=== PATIENT | male | born 1950 | race Caucasian/White ===

== ENCOUNTER 2023-04-03 06:15 | Outpatient (CLI) | payer MEDICARE, SELFPAY | END 2023-04-03 06:16 | disposition home or self-care (01) | LOC: AMB 04-07 09:26 | PROVIDERS: PCP Family Medicine; Visit Provider Emergency Medicine | DX: M79.652 Pain in left thigh (principal) | CPT/HCPCS: A0425; A0429 ==

== ENCOUNTER 2023-04-03 06:41 | Observation (INO) | payer MEDICARE, SELFPAY ==
[2023-04-03 06:48] VITALS: BP 142/84; PULSE 84; RESP 16; TEMP 36.4; O2SAT 98; BMI 36.6
[2023-04-03 07:31] LABS: Basophils Absolute Auto 0.03 K/uL (0.00-0.30); Basophils Percent Auto 0.3 % (0.0-3.0); Eosinophils Absolute Auto 0.12 K/uL (0.00-0.50); Eosinophils Percent Auto 1.2 % (0.0-7.0); Hematocrit 42.5 % (37.0-53.0); Hemoglobin* 14.6 gm/dL (13.5-17.5); Immature Granulocytes Abs Auto 0.01 K/uL (0.00-0.30); Immature Granulocytes Pct Auto 0.1 %; Lymphocytes Percent Auto 17.7 % (20-44); Mean Corpuscular HGB Conc 34 gm/dL (32-36); Mean Corpuscular Hemoglobin 30 pg (26-34); Mean Corpuscular Volume 89 fL (80-100); Monocytes Percent Auto 6.4 % (0.0-11.0); Neutrophils Percent Auto 74.3 % (42.0-72.0); Platelet Count* 277 K/uL (140-440); RDW Coefficient of Variation % 13.1 % (11.5-15.5); Slide Review Reflex No; White Blood Count* 9.83 K/uL (4.50-11.00)
[2023-04-03] MEDS: MORPHINE 4 MG/ML INJ IVP ×6 (07:31→21:49)
[2023-04-03 07:35] VITALS: PULSE 72; RESP 18; O2SAT 95
--- NOTE | 2023-04-03 07:40 | ED_ITS ---
HPI - General Adult General Date Seen: 04/03/23 <Marli Weber MD - Last Filed: 04/10/23 11:09> Chief complaint: Extremity Pain/Injury, Lower <Marli Weber MD - Last Filed: 04/10/23 11:09> Stated complaint: L leg pain <Marli Weber MD - Last Filed: 04/10/23 11:09> Time Seen by Provider: 04/03/23 07:00 <Marli Weber MD - Last Filed: 04/10/23 11:09> Source: patient <Marli Weber MD - Last Filed: 04/10/23 11:09> Mode of arrival: EMS <Marli Weber MD - Last Filed: 04/10/23 11:09> Limitations: no limitations <Marli Weber MD - Last Filed: 04/10/23 11:09> History of Present Illness HPI narrative: Patient is a 73-year-old male here by EMS, accompanied by his who presents for evaluation of left anterolateral thigh pain. He has a history of stroke on the left and residual weakness but typically gets around with a cane. He has had multiple episodes of this kind of pain and it has been previously diagnosed as meralgia paresthetica. He takes gabapentin chronically, he also has diabetic neuropathy. It started to bother him yesterday, any talked with Dr. Castelan over the phone, and was prescribed oxycodone. He has been taking 5 mg, but pain has been poorly controlled and he was not able to ambulate. Therefore he called 911. He does note that he has a couple of chronic wounds 1 on the anterior right lower leg and 1 on the posterior left lower leg, these have been stable, he says he has been meaning to see somebody about those. He has not had fevers, no falls. Leg has not been swollen or red. <Marli Weber MD - Last Filed: 04/10/23 11:09> Related Data Home medications: Home Medications Medication Instructions Recorded Confirmed alendronate 70 mg tablet 70 mg PO Q7D 04/03/23 04/03/23 atorvastatin 40 mg tablet 40 mg PO DAILY 04/03/23 04/03/23 baclofen 10 mg tablet 10 mg PO TID 04/03/23 04/03/23 blood sugar diagnostic (Accu-Chek 04/03/23 04/03/23 Flaquita Plus test strips) empagliflozin 10 mg tablet 10 mg PO DAILY 04/03/23 04/03/23 (Jardiance) epinephrine 0.3 mg/0.3 mL 0.3 mg IM .ud 04/03/23 04/03/23 injection, auto-injector gabapentin 300 mg capsule 600 - 900 mg PO TID 04/03/23 04/03/23 glipizide 10 mg tablet, extended 20 mg PO DAILY 04/03/23 04/03/23 release 24 hr insulin glargine 100 unit/mL (3 65 - 80 unit subcut QPM 04/03/23 04/03/23 mL) subcutaneous pen (Lantus Solostar U-100 Insulin) insulin lispro 100 unit/mL 10 - 20 unit subcut .every evening 04/03/23 04/03/23 subcutaneous pen (Humalog KwikPen as dir (U-100) Insulin) lisinopril 20 mg tablet 20 mg PO DAILY 04/03/23 04/03/23 metformin 1,000 mg tablet 1,000 mg PO BID 04/03/23 04/03/23 nitroglycerin 0.4 mg sublingual 0.4 mg sublingual Q5M 04/03/23 04/03/23 tablet oxybutynin chloride 5 mg tablet 5 mg PO BID 04/03/23 04/03/23 Previous Rx's Medication Instructions Recorded potassium chloride 10 mEq 10 meq PO DAILY #7 caps 04/03/23 capsule,extended release acetaminophen 650 mg 1,300 mg (2 x 650 mg) PO Q8H PRN 04/05/23 tablet,extended release 30 days #120 tabs amlodipine 10 mg tablet 5 mg (1/2 x 10 mg) PO DAILY 30 04/05/23 days #15 tabs carvedilol 25 mg tablet 37.5 mg (1.5 x 25 mg) PO BID 30 04/05/23 days #90 tabs hydrochlorothiazide 25 mg tablet 12.5 mg (1/2 x 25 mg) PO DAILY 30 04/05/23 days #15 tabs morphine 15 mg tablet,extended 15 mg PO BID 15 days #30 tabs 04/05/23 release nystatin 100,000 unit/gram topical 1 applic topical BID 15 days #30 04/05/23 powder grams oxycodone 5 mg tablet 2.5 - 5 mg (0.5 - 1 x 5 mg) PO Q4H 04/05/23 PRN 15 days #20 tabs sennosides 8.6 mg-docusate sodium 2 tab PO BID 30 days #120 tabs 04/05/23 50 mg tablet (Stool Softener-Laxative) <Marli Weber MD - Last Filed: 04/10/23 11:09> Allergies/adverse reactions: Allergies Allergy/AdvReac Type Severity Reaction Status Date / Time No Known Drug Allergies Allergy Verified 04/03/23 07:31 <Marli Weber MD - Last Filed: 04/10/23 11:09> Review of Systems Status of ROS: Reports: 6 or more systems reviewed and unremarkable except as noted in History and below <Marli Weber MD - Last Filed: 04/10/23 11:09> [facility] Medical History: Medical History (Updated 04/05/23 @ 15:15 by Faustino Pool MD) Left hemiparesis ?G81.94 - Hemiplegia, unspecified affecting left nondominant side (ICD-10) Essential hypertension ?I10 - Essential (primary) hypertension (ICD-10) Gout ?M10.9 - Gout, unspecified (ICD-10) Osteoporosis ?M81.0 - Age-related osteoporosis without current pathological fracture (ICD- 10) Insulin dependent diabetes mellitus Hemorrhagic cerebrovascular accident (CVA) ?I61.9 - Nontraumatic intracerebral hemorrhage, unspecified (ICD-10) Hyperlipidemia ?E78.5 - Hyperlipidemia, unspecified (ICD-10) CAD (coronary artery disease) ?I25.10 - Atherosclerotic heart disease of [place] coronary artery without angina pectoris (ICD-10) <Marli Wbeer MD - Last Filed: 04/10/23 11:09> Surgical History: Surgical History (Updated 04/03/23 @ 11:47 by Rosanna Lara MD) S/P ORIF (open reduction internal fixation) fracture ?Z98.890 - Other specified postprocedural states (ICD-10) ?Z87.81 - Personal history of (healed) traumatic fracture (ICD-10) <Marli Weber MD - Last Filed: 04/10/23 11:09> Social History: Social History (Updated 04/03/23 @ 11:44 by Rosanna Lara MD) Narrative: Lives with Sirena (medical decision maker if needed). 2 adult sons. 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 Quit smoking 2000, ETOH 3-4 nights/week. Requests Full Code status. What is your current living situation?: I presently have a place to live Problems where you live: no known problems Problems where you live details: RAILINGS TO LOWER LEVELS NO CURRENT PROBLEMS In the past 12 months, utilities in danger of being shut off: no In the past 12 mos, have been you worried that your food would run out before you had money to buy more?: never true In the past 12 mos, the food you bought just didn't last and you didn't have money to buy more?: never true Highest level of school completed/degree received: Associate degree: academic program Smoking Status: Former smoker Do you use any of these nicotine containing products: None Second hand tobacco smoke exposure: No How often do you have a drink containing alcohol: 2-3 times a week Alcohol type: beer How many standard drinks containing alcohol do you have on a typical day: 1 or 2 How often do you have six or more drinks on one occasion: Never AUDIT-C Alcohol total score: 3 Non-prescribed substance use: denies use Caffeine: Yes (2 CUPS FOLGERS COFFEE) How often does anyone, including family, friends and others, physically hurt you : never How often does anyone, including family, friends and others, insult or talk down to you: never How often does anyone, including family, friends and others, threaten you with harm: never How often does anyone, including family, friends and others, scream or curse at you: never service: Yes <Marli Weber MD - Last Filed: 04/10/23 11:09> Exam Narrative: Exam Narrative: Vital signs reviewed In general, alert, nontoxic elderly male. Abdomen is soft and nontender, protuberant. Extremities: The left lower extremity is normal in appearance in terms of the proximal lower extremity. He does have a chronic ulcer on the back of his leg and there is a little bit of surrounding erythema but it looks the same as <Marli Weber MD - Last Filed: 04/10/23 11:09> Const: Vital Signs, click to edit/add: Vital Signs - 24 hr 04/03/23 06:48 04/03/23 07:35 Temperature 97.6 F Pulse Rate [Left P ulse Oximeter] 84 72 Respiratory Rate 16 18 Blood Pressure [Ri ght Upper Arm] 142/84 H Pulse Oximetry 98 95 Oxygen Delivery Me thod Room Air Room Air <Marli Weber MD - Last Filed: 04/10/23 11:09> Vital Signs, click to edit/add: Vital Signs - 24 hr 04/03/23 06:48 04/03/23 07:35 Temperature 97.6 F Pulse Rate [Left P ulse Oximeter] 84 72 Respiratory Rate 16 18 Blood Pressure [Ri ght Upper Arm] 142/84 H Pulse Oximetry 98 95 Oxygen Delivery Me thod Room Air Room Air <Aranza Dupree MD - Last Filed: 04/03/23 10:06> Course Course Hospital Course: I did elect to check a few labs given his diabetes and chronic wounds, these are unrevealing. White blood cell count, sed rate, CRP are all normal. Metabolic panel notable only for mildly low potassium of 3.3. I gave him 4 mg of morphine, pain is improved, will go ahead and see if he can be ambulatory. If so, looking through his previous records he was given in 2013 a combination of MS Contin and oxycodone and seems to have done okay with that. We will plan to prescribe MS Contin 30 mg b.i.d. along with his oxycodone and then follow up with Dr. Castelan if not improving over the next few days. Typically says the symptoms resolved over 2-3 days. If he is not able to be ambulatory with IV pain medications here then he would need to come in to the hospital for pain control. <Marli Weber MD - Last Filed: 04/10/23 11:09> Vital Signs Vital signs: Initial Vital Signs Temperature 97.6 F 04/03/23 06:48 Temperature Source Temporal Artery Scan 04/03/23 06:48 Pulse Rate 84 04/03/23 06:48 Respiratory Rate 16 04/03/23 06:48 Blood Pressure 142/84 H 04/03/23 06:48 Blood Pressure Mean 103 04/03/23 06:48 Blood Pressure Position Sitting 04/03/23 06:48 Pulse Oximetry 98 04/03/23 06:48 Oxygen Delivery Method Room Air 04/03/23 06:48 Vital Signs Temperature 97.6 F 04/03/23 06:48 Pulse Rate 84 04/03/23 06:48 Respiratory Rate 16 04/03/23 06:48 Blood Pressure 142/84 H 04/03/23 06:48 Pulse Oximetry 98 04/03/23 06:48 Oxygen Delivery Method Room Air 04/03/23 06:48 Temperature 99.6 F 04/05/23 11:00 Pulse Rate 77 04/05/23 11:00 Respiratory Rate 16 04/05/23 11:00 Blood Pressure 126/74 04/05/23 11:00 Pulse Oximetry 98 04/05/23 11:00 Oxygen Delivery Method Room Air 04/05/23 11:00 <Marli Weber MD - Last Filed: 04/10/23 11:09> Initial Vital Signs Temperature 97.6 F 04/03/23 06:48 Temperature Source Temporal Artery Scan 04/03/23 06:48 Pulse Rate 84 04/03/23 06:48 Respiratory Rate 16 04/03/23 06:48 Blood Pressure 142/84 H 04/03/23 06:48 Blood Pressure Mean 103 04/03/23 06:48 Blood Pressure Position Sitting 04/03/23 06:48 Pulse Oximetry 98 04/03/23 06:48 Oxygen Delivery Method Room Air 04/03/23 06:48 Vital Signs Temperature 97.6 F 04/03/23 06:48 Pulse Rate 84 04/03/23 06:48 Respiratory Rate 16 04/03/23 06:48 Blood Pressure 142/84 H 04/03/23 06:48 Pulse Oximetry 98 04/03/23 06:48 Oxygen Delivery Method Room Air 04/03/23 06:48 Temperature 99.6 F 04/05/23 11:00 Pulse Rate 77 04/05/23 11:00 Respiratory Rate 16 04/05/23 11:00 Blood Pressure 126/74 04/05/23 11:00 Pulse Oximetry 98 04/05/23 11:00 Oxygen Delivery Method Room Air 04/05/23 11:00 <Aranza Dupree MD - Last Filed: 04/03/23 10:06> Medical Decision Making MDM Narrative Medical decision making narrative: Patient was requiring a heavy one-person assist with ambulation secondary to pain. Therefore at this time patient will be admitted for further management as he cannot manage this at home. <Aranza Dupree MD - Last Filed: 04/03/23 10:06> Lab Data Lab results reviewed: Yes I reviewed the patient's lab results <Aranza Dupree MD - Last Filed: 04/03/23 10:06> Labs: Lab Results 04/03/23 Range/Units 07:25 WBC 9.83 (4.50-11.00) K/uL RBC 4.80 (4.30-5.90) m/uL Hgb 14.6 (13.5-17.5) gm/dL Hct 42.5 (37.0-53.0) % MCV 89 (80-100) fL MCH 30 (26-34) pg MCHC 34 (32-36) gm/dL RDW Coeff of [place] 13.1 (11.5-15.5) % Plt Count 277 (140-440) K/uL Neut % (Auto) 74.3 H (42.0-72.0) % Lymph % (Auto) 17.7 L (20-44) % [place] % (Auto) 6.4 (0.0-11.0) % Eos % (Auto) 1.2 (0.0-7.0) % Baso % (Auto) 0.3 (0.0-3.0) % Neut # (Auto) 7.30 H (1.7-7.0) K/uL Lymph # (Auto) 1.70 (0.90-2.90) K/uL [place] # (Auto) 0.60 (0.00-0.90) K/UL Eos # (Auto) 0.12 (0.00-0.50) K/uL Baso # (Auto) 0.03 (0.00-0.30) K/uL Abs Immat Gran (auto) 0.01 (0.00-0.30) K/uL Imm/Tot Granulo (auto) 0.1 % ESR 12 (2-15) mm/hr Sodium 139 (135-149) mmol/L Potassium 3.3 L (3.6-5.1) mmol/L Chloride 100 (96-114) mmol/L Carbon Dioxide 27 (20-32) mmol/L BUN 17 (7-30) mg/dL Creatinine 0.6 (0.5-1.5) mg/dL Estimated Creat Clear 58.94 Estimated GFR 103 ml/min Glucose 166 H (60-115) mg/dL Calcium 8.7 (8.4-10.6) mg/dL C-Reactive Protein 0.6 (0.5-1.0) mg/dL <Marli Weber MD - Last Filed: 04/10/23 11:09> Lab Results 04/03/23 Range/Units 07:25 WBC 9.83 (4.50-11.00) K/uL RBC 4.80 (4.30-5.90) m/uL Hgb 14.6 (13.5-17.5) gm/dL Hct 42.5 (37.0-53.0) % MCV 89 (80-100) fL MCH 30 (26-34) pg MCHC 34 (32-36) gm/dL RDW Coeff of [place] 13.1 (11.5-15.5) % Plt Count 277 (140-440) K/uL Neut % (Auto) 74.3 H (42.0-72.0) % Lymph % (Auto) 17.7 L (20-44) % [place] % (Auto) 6.4 (0.0-11.0) % Eos % (Auto) 1.2 (0.0-7.0) % Baso % (Auto) 0.3 (0.0-3.0) % Neut # (Auto) 7.30 H (1.7-7.0) K/uL Lymph # (Auto) 1.70 (0.90-2.90) K/uL [place] # (Auto) 0.60 (0.00-0.90) K/UL Eos # (Auto) 0.12 (0.00-0.50) K/uL Baso # (Auto) 0.03 (0.00-0.30) K/uL Abs Immat Gran (auto) 0.01 (0.00-0.30) K/uL Imm/Tot Granulo (auto) 0.1 % ESR 12 (2-15) mm/hr Sodium 139 (135-149) mmol/L Potassium 3.3 L (3.6-5.1) mmol/L Chloride 100 (96-114) mmol/L Carbon Dioxide 27 (20-32) mmol/L BUN 17 (7-30) mg/dL Creatinine 0.6 (0.5-1.5) mg/dL Estimated Creat Clear 58.94 Estimated GFR 103 ml/min Glucose 166 H (60-115) mg/dL Calcium 8.7 (8.4-10.6) mg/dL C-Reactive Protein 0.6 (0.5-1.0) mg/dL <Aranza Dupree MD - Last Filed: 04/03/23 10:06> Discharge Plan Discharge Clinical Impression: Meralgia paresthetica of left side <Marli Weber MD - Last Filed: 04/10/23 11:09> Patient Disposition: Admitted As Inpatient <Marli Weber MD - Last Filed: 04/10/23 11:09> Condition: Stable <Marli Weber MD - Last Filed: 04/10/23 11:09> Activity Level: Activity as Tolerated <Marli Weber MD - Last Filed: 04/10/23 11:09> Activity as Tolerated <Aranza Dupree MD - Last Filed: 04/03/23 10:06> Discharge Diet: Diabetic <Marli Weber MD - Last Filed: 04/10/23 11:09> Diabetic <Aranza Dupree MD - Last Filed: 04/03/23 10:06>
[2023-04-03 07:43] LABS: Chloride* 100 mmol/L (96-114); Potassium* 3.3 mmol/L (3.6-5.1); Sodium* 139 mmol/L (135-149)
[2023-04-03 07:46] LABS: Creatinine* 0.6 mg/dL (0.5-1.5); Est. Creatinine Clearance* 58.94; Estimated Glomerular Filt Rate 103 ml/min
[2023-04-03 07:47] LABS: Blood Urea Nitrogen* 17 mg/dL (7-30); Calcium* 8.7 mg/dL (8.4-10.6); Carbon Dioxide* 27 mmol/L (20-32); Glucose* 166 mg/dL (60-115)
[2023-04-03 07:49] LABS: C Reactive Protein* 0.6 mg/dL (0.5-1.0)
[2023-04-03 08:10] LABS: Erythrocyte SedimentationRate* 12 mm/hr (2-15)
--- NOTE | 2023-04-03 11:26 | CRLHL7_ITS ---
For Patients: As a result of the Cures Act, medical imaging exams and procedure reports are released immediately into your electronic medical record. You may view this report before your referring provider. If you have questions, please contact your health care provider. Indication: Pain, history of surgery Comparison: None available. Technique: AP and lateral views left femur were obtained. Findings: There is demonstration of prior proximal femur fracture status post intertrochanteric fixation with healing bony callus. No evidence of hardware failure or new acute osseous abnormality. Degenerative changes of the left hip are appreciated. The soft tissues are unremarkable. Impression: Demonstration of prior proximal femur fracture status post intertrochanteric fixation without evidence of hardware failure or new acute osseous abnormality. Dictated by Jose Alberto Tuttle MD @ 04/03/2023 3:13:25 PM (Electronically Signed)
--- NOTE | 2023-04-03 11:27 | P.IMHP_ITS ---
Hospitalist- H&P: HPI History of Present Illness Date Seen: 04/03/23 Chief complaint: L leg pain Narrative: Lobo Moran is a 73 year old male who presented to the ER for acute onset L lateral thigh pain.He notes that pain started 3-4 days ago, was severe at onset. He has had no numbness or tingling. there was no trauma. He has had no changes in bowel or bladder function. He does have intermittent lower back pain, this has remained stable. History: Lobo had a CVA in 2004 with residual left-sided weakness. He also broke his femur remotely, has a tamara in place. In 2013, he had same pain in his left thigh; MRI of his lumbar spine at that time was normal. 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 He has not had recurrence of pain until this week. Lobo has been taking Tylenol and ibuprofen scheduled for pain control without relief. Yesterday, he called his PCP and was given a prescription for oxycodone which he is taking, but this is also not been effective. He typically uses a cane for ambulation around the home ( given CVA) but has had to use a walker over the past week given pain. ER Course: - mild relief with IV morphine - K of 3.3 - unable to ambulate, admitted for IV pain control and workup Patient continues to have pain upon arrival to the floor. He is given a repeat dose of IV Morphine with + relief. Medical history updated below; PCP is Dr. Castelan locally. Review of Systems Status of ROS: Reports: 10 or more systems reviewed and unremarkable except as noted in History and below Narrative: Specifically denies numbness or tingling in his left lower extremity, denies new bowel or bladder dysfunction. Does have skin breakdown on right lower extremity and left lower extremity, both fairly new. No other skin concerns. [facility] Medical History (Updated 04/03/23 @ 14:18 by Rosanna Lara MD) Essential hypertension ?I10 - Essential (primary) hypertension (ICD-10) Gout ?M10.9 - Gout, unspecified (ICD-10) Osteoporosis ?M81.0 - Age-related osteoporosis without current pathological fracture (ICD- 10) Insulin dependent diabetes mellitus Hemorrhagic cerebrovascular accident (CVA) ?I61.9 - Nontraumatic intracerebral hemorrhage, unspecified (ICD-10) Hyperlipidemia ?E78.5 - Hyperlipidemia, unspecified (ICD-10) CAD (coronary artery disease) ?I25.10 - Atherosclerotic heart disease of [place] coronary artery without angina pectoris (ICD-10) Surgical History (Updated 04/03/23 @ 11:47 by Rosanna Lara MD) S/P ORIF (open reduction internal fixation) fracture ?Z98.890 - Other specified postprocedural states (ICD-10) ?Z87.81 - Personal history of (healed) traumatic fracture (ICD-10) Social History (Updated 04/03/23 @ 11:44 by Rosanna Lara MD) Narrative: Lives with Sirena (medical decision maker if needed). 2 adult sons. Works for [employer], still does morning weather report. Quit smoking 2000, ETOH 3-4 nights/week. Requests Full Code status. What is your current living situation?: I presently have a place to live Problems where you live: no known problems Problems where you live details: RAILINGS TO LOWER LEVELS NO CURRENT PROBLEMS In the past 12 months, utilities in danger of being shut off: no In the past 12 mos, have been you worried that your food would run out before you had money to buy more?: never true In the past 12 mos, the food you bought just didn't last and you didn't have money to buy more?: never true Highest level of school completed/degree received: Associate degree: academic program Smoking Status: Former smoker Do you use any of these nicotine containing products: None Second hand tobacco smoke exposure: No How often do you have a drink containing alcohol: 2-3 times a week Alcohol type: beer How many standard drinks containing alcohol do you have on a typical day: 1 or 2 How often do you have six or more drinks on one occasion: Never AUDIT-C Alcohol total score: 3 Non-prescribed substance use: denies use Caffeine: Yes (2 CUPS FOLGERS COFFEE) How often does anyone, including family, friends and others, physically hurt you : never How often does anyone, including family, friends and others, insult or talk down to you: never How often does anyone, including family, friends and others, threaten you with harm: never How often does anyone, including family, friends and others, scream or curse at you: never service: Yes Meds Home Medications and Allergies Home Medications Medication Instructions Recorded Confirmed Type alendronate 70 mg tablet 70 mg PO Q7D 04/03/23 04/03/23 History amlodipine 10 mg tablet 10 mg PO DAILY 04/03/23 04/03/23 History atorvastatin 40 mg tablet 40 mg PO DAILY 04/03/23 04/03/23 History baclofen 10 mg tablet 10 mg PO TID 04/03/23 04/03/23 History blood sugar diagnostic (Accu-Chek 04/03/23 04/03/23 History Flaquita Plus test strips) carvedilol 25 mg tablet 50 mg PO BID 04/03/23 04/03/23 History empagliflozin 10 mg tablet 10 mg PO DAILY 04/03/23 04/03/23 History (Jardiance) epinephrine 0.3 mg/0.3 mL 0.3 mg IM .ud 04/03/23 04/03/23 History injection, auto-injector gabapentin 300 mg capsule 600 - 900 mg PO TID 04/03/23 04/03/23 History glipizide 10 mg tablet, extended 20 mg PO DAILY 04/03/23 04/03/23 History release 24 hr hydrochlorothiazide 25 mg tablet 25 mg PO DAILY 04/03/23 04/03/23 History insulin glargine 100 unit/mL (3 65 - 80 unit subcut QPM 04/03/23 04/03/23 Hi story mL) subcutaneous pen (Lantus Solostar U-100 Insulin) insulin lispro 100 unit/mL 10 - 20 unit subcut .every evening 04/03/23 04/03/23 History subcutaneous pen (Humalog KwikPen as dir (U-100) Insulin) lisinopril 20 mg tablet 20 mg PO DAILY 04/03/23 04/03/23 History metformin 1,000 mg tablet 1,000 mg PO BID 04/03/23 04/03/23 History nitroglycerin 0.4 mg sublingual 0.4 mg sublingual Q5M 04/03/23 04/03/23 History tablet oxybutynin chloride 5 mg tablet 5 mg PO BID 04/03/23 04/03/23 History oxycodone 5 mg tablet 5 mg PO Q8H PRN pain 04/03/23 04/03/23 History Allergies Allergy/AdvReac Type Severity Reaction Status Date / Time No Known Drug Allergies Allergy Verified 04/03/23 07:31 Exam Narrative: Exam Narrative: GEN: Alert and oriented, does appear to be in pain but otherwise nontoxic HEENT: Normal external ears, EOMIs bilaterally, no scleral icterus CV: RRR, No concerning murmurs R: LCTA bilaterally without concerning wheezing, air movement Ext: warm and well perfused, no pitting edema. Palpable pulses bilaterally Skin: Hyperpigmentation of bilateral lower extremities, consistent with PVD. There is a wound on the posterior LLE that measures approximately 2 cm x 1 cm, hemostatic without drainage. On the right lower extremity there is an area of erythema laterally that has 3 discrete areas of skin breakdown. Two have developing eschar and the 3rd area has notable serosanguineous drainage Neuro: L sided facial droop, weakness of LUE and LLE. Normal sensation and movement bilateral lower extremities while in bed Psych: Appropriate Const: Vital Signs, click to edit/add: Vital Signs - 24 hr 04/03/23 06:48 04/03/23 07:35 Temperature 97.6 F Pulse Rate [Left P ulse Oximeter] 84 72 Respiratory Rate 16 18 Blood Pressure [Ri ght Upper Arm] 142/84 H Pulse Oximetry 98 95 Oxygen Delivery Me thod Room Air Room Air Hospitalist - H&P: Result Labs Labs: Short CBC 04/03/23 Range/Units 07:25 WBC 9.83 (4.50-11.00) K/uL Hgb 14.6 (13.5-17.5) gm/dL Hct 42.5 (37.0-53.0) % Plt Count 277 (140-440) K/uL BMP 04/03/23 07:25 Sodium 139 Potassium 3.3 L Chloride 100 Carbon Dioxide 27 BUN 17 Creatinine 0.6 Glucose 166 H Calcium 8.7 Assessment and Plan Assessment and plan (1) Left thigh pain: Problem comment: - History consistent with meralgia paresthetica, 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 - will obtain XR given previous surgical intervention, consider repeat L-Spine MRI given acute change in pain - pain control with scheduled APAP, prn IV Morphine (unable to control pain adequately with oral therapies at this time), low dose prn Toradol - add Prednisone to cover any inflammatory processes Status: Acute (2) Insulin dependent diabetes mellitus: Problem comment: - last A1C 7.1 (09/2022) - continue home medications, SSI - anticipate elevated BGs while on steroids Status: Acute Plan - per above - continue home medications for comorbidities - Lovenox, SCDs, PPI for ppx - Full Code - updated at bedside, questions answered
[2023-04-03] MEDS: KETOROLAC 15 MG/ML inj IVP (12:26)
[2023-04-03] MEDS: POTASSIUM BICARB 25 MEQ EFFERVESCENT TAB PO ×2 (12:27→13:49)
[2023-04-03] MEDS: predniSONE 20 MG TABLET 60 MG PO (12:28)
[2023-04-03 12:42] VITALS: BP 108/67; PULSE 59; RESP 16; TEMP 37.1; O2SAT 96; BMI 36.1
[2023-04-03] MEDS: GABAPENTIN 300 MG CAPSULE PO (13:49)
[2023-04-03] MEDS: BACLOFEN 10 MG TABLET PO ×2 (13:50→21:31)
[2023-04-03 15:00] VITALS: BP 138/76; PULSE 79; RESP 18; TEMP 36.4; O2SAT 95
--- NOTE | 2023-04-03 15:12 | CRLHL7_ITS ---
For Patients: As a result of the 21st Century Cures Act, medical imaging exams and procedure reports are released immediately into your electronic medical record. You may view this report before your referring provider. If you have questions, please contact your health care provider. INDICATION: Left eye pain. COMPARISON: 04/19/2014. Technique Sagittal T1, T2, and STIR sequences. Axial T1 and T2 weighted sequences. FINDINGS: Stable degenerative grade 1 anterolisthesis of L4 on L5 measures approximate 5 millimeters. Otherwise, normal alignment. No fractures. No vertebral body loss of height. No ligamentous injury. No suspicious osseous lesions. Normal conus terminates at L1. Partially visualized vertebral body hemangioma T11. Congenitally short pedicles contributes to overall narrowed caliber of the spinal canal. T12-L1: No spinal canal neural foraminal narrowing. L1-2: Disc degeneration diffuse disc bulge eccentric to the right. No narrowing of spinal canal. Mild narrowing of the right neural foramen. No narrowing of the left neural foramen. L2-3: Disc degeneration and posterior disc bulge. No narrowing of spinal canal. No neural foraminal narrowing. Mild facet arthropathy. L3-4: Disc degeneration posterior disc bulge. Combined with ligamentum flavum and facet hypertrophy, there is mild narrowing of the spinal canal. Left extra foraminal disc protrusion measures approximately 3 mm in short axis which contributes to moderate narrowing of the left neural foramen and may impinge upon the exiting left L3 nerve root. Mild narrowing of the right neural foramen. Mild facet arthropathy. L4-5: Grade 1 anterolisthesis. Disc degeneration and unroofed posterior disc bulge. Mild narrowing of spinal canal. Oblique orientation of bilateral foramina with moderate right and mild left neural foraminal narrowing. Mild os arthropathy. L5-S1: Disc degeneration and posterior disc bulge. No narrowing of spinal canal. No impingement of the traversing S1 nerve roots. Mild narrowing of bilateral foramina. Mild facet arthropathy. Degenerative changes of the SI joints. Bilateral renal cysts. IMPRESSION: 1. Stable degenerative grade 1 anterolisthesis of L4 on L5. Otherwise normal alignment. No fractures 2. Congenital pedicles 3. Interval progression of lumbar spondylosis. 4. At L1-2, mild narrowing of the right neural foramina 5. At L3-4, mild narrowing of spinal canal. Left extraforaminal disc protrusion contributes to moderate narrowing of the left neural foramen and may impinge upon the exiting left L3 nerve root. Mild narrowing of the right neuroforamen. 6. At L4-5, moderate right and mild left neural foraminal narrowing. 7. At L5-S1, mild narrowing of the bilateral foramina Dictated by Abdoulaye Dennis MD @ 04/03/2023 5:48:47 PM (Electronically Signed)
--- NOTE | 2023-04-03 15:14 | PC.NURSE ---
shift note: pt admit to rm 262 via stretcher. pt a&o x3. pt rating pain on admit 06/03 lt hip. pt medicated with morphine sulfate 4mg with minimal relief. Pt medicated a second time with toradol and morphine sulfate with better relief. pt stood at side of bed with 2/walker to use urinal. vss stable. Pt has #20 Rt AC intact. LS clr. Lt facial droop and u/e weakness. Lt foot with non pitting edema. at bedside
[2023-04-03] MEDS: ACETAMINOPHEN 650 MG TABLET ER 1300 MG PO (18:39)
[2023-04-03 19:00] VITALS: BP 130/84; PULSE 85; RESP 18; TEMP 36.3; O2SAT 97
[2023-04-03] MEDS: oxyBUTYnin chloride 5 MG TABLET PO (21:31)
[2023-04-03] MEDS: METFORMIN 1,000 MG TABLET 1000 MG PO (21:31)
[2023-04-03] MEDS: GABAPENTIN 300 MG CAPSULE 900 MG PO (21:31)
[2023-04-03] MEDS: ENOXAPARIN 40 MG/0.4 ML INJ SUBCUT (21:32)
[2023-04-03] MEDS: carvediloL 25 MG TABLET 50 MG PO (21:32)
[2023-04-03] MEDS: SODIUM CHLORIDE 0.9 % (FLUSH) 10 ML SYRINGE 5 ML IVF (21:35)
[2023-04-03 23:00] VITALS: BP 120/71; PULSE 78; RESP 18; TEMP 36.3; O2SAT 97
[2023-04-04] MEDS: NYSTATIN POWDER 1 APPLIC TOPICAL ×3 (01:09→21:10)
[2023-04-04] MEDS: MORPHINE 4 MG/ML INJ IVP ×4 (01:23→16:06)
[2023-04-04 03:00] VITALS: BP 110/72; PULSE 84; RESP 18; TEMP 36.8; O2SAT 100
--- NOTE | 2023-04-04 06:33 | PC.NURSE ---
Shift note: Pt has been complaining of hip pain especially after ambulation to commode. Pain rated at 7 and managed with IV Morphine. Pt is A1, walker and GB but shaky when standing upright. Alert and oriented, vitally stable. Pt used CPAP at night. Nurse noted bilateral ankle edema of 1+. No facial drooling noted.
[2023-04-04] MEDS: OMEPRAZOLE 20 MG CAPSULE DR PO (06:59)
[2023-04-04 07:00] VITALS: BP 121/78; PULSE 79; RESP 18; TEMP 37.4; O2SAT 97
[2023-04-04] MEDS: ACETAMINOPHEN 650 MG TABLET ER 1300 MG PO ×2 (07:28→16:05)
[2023-04-04] MEDS: AMLODIPINE 10 MG TABLET PO (08:59)
[2023-04-04] MEDS: ATORVASTATIN CALCIUM 40 MG TABLET PO (08:59)
[2023-04-04] MEDS: predniSONE 20 MG TABLET 40 MG PO (08:59)
[2023-04-04] MEDS: GABAPENTIN 600 MG TABLET PO ×2 (09:00→13:38)
[2023-04-04] MEDS: glipiZIDE XL 5 MG TAB 20 MG PO (09:00)
[2023-04-04] MEDS: BACLOFEN 10 MG TABLET PO ×3 (09:00→21:09)
[2023-04-04] MEDS: carvediloL 25 MG TABLET 50 MG PO (09:00)
[2023-04-04] MEDS: oxyBUTYnin chloride 5 MG TABLET PO ×2 (09:01→21:08)
[2023-04-04] MEDS: lisinopriL 20 MG TABLET PO (09:01)
[2023-04-04] MEDS: hydroCHLOROthiazide 25 MG TABLET PO (09:01)
[2023-04-04] MEDS: METFORMIN 1,000 MG TABLET 1000 MG PO ×2 (09:01→21:09)
[2023-04-04] MEDS: SODIUM CHLORIDE 0.9 % (FLUSH) 10 ML SYRINGE 5 ML IVF ×5 (09:02→21:16)
[2023-04-04] MEDS: KETOROLAC 15 MG/ML inj IVP ×2 (09:02→15:02)
[2023-04-04 11:00] VITALS: BP 112/70; PULSE 73; RESP 20; TEMP 37.4; O2SAT 94
[2023-04-04] MEDS: polyethylene glycoL 3350 17 GM PACK PO (12:28)
--- NOTE | 2023-04-04 14:51 | PC.SOCIAL ---
Discharge Planning: Met with patient, Fransisco and , Sirena. Patient is hopeful to return back home with spouse caring for him. They state that their house is pretty much handicap accessible with changes they have made over the years. Social work to follow up as needed.
[2023-04-04 15:00] VITALS: BP 99/63; PULSE 74; RESP 14; TEMP 36.8; O2SAT 94
--- NOTE | 2023-04-04 15:15 | PM.IMPN1 ---
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 - will obtain XR given previous surgical intervention, consider repeat L-Spine MRI given acute change in pain - pain control with scheduled APAP, prn IV Morphine (unable to control pain adequately with oral therapies at this time), low dose prn Toradol - add Prednisone to cover any inflammatory processes Status: Acute (2) Insulin dependent diabetes mellitus: Problem details: - last A1C 7.1 (09/2022) - continue home medications, SSI - anticipate elevated BGs while on steroids Status: Acute (3) Left hemiparesis: Problem details: Status post hemorrhagic cerebrovascular accident in 2004 Status: Acute (4) Hemorrhagic cerebrovascular accident (CVA): Problem details: - 2004, L sided deficits Status: Acute (5) CAD (coronary artery disease): Problem details: - [place] 2000 with placement of RCA stent Status: Acute (6) Essential hypertension: Status: Acute (7) BARRY on CPAP: Status: Acute Assessment and Plan: Continue CPAP. (8) Meralgia paresthetica of left side: Problem details: Differential diagnosis includes diabetic amyotrophic neuralgia, complex regional pain syndrome. Status: Acute Assessment and Plan: Continue with efforts to address the acute pain in the inpatient setting, transitioning to home, and warranting neurology consultation in the near future. Plan 1. Add schedule MS Contin. 2. And immediate release oxycodone p.r.n. 3. Continue to work with physical therapy and occupational therapy. 4. Discharge home possibly as early as tomorrow if he achieves relative stability on current efforts. Time Spent With Patient Total time spent: 45 minutes Subjective Time Seen by Provider: 12:00 Date Seen: 04/04/23 Interval history: Hospital day 2. Was in his usual state of health until about 3 days prior to presentation to the hospital yesterday when he had sudden onset of left lateral thigh pain similar to what he has had in the past starting in 2013 and subsequently. 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 Subsequently when he had a recurrence of his condition he was thought to possibly have meralgia paresthetica. This condition suddenly recurred yesterday. No recent trauma or injury or travel. Problem is persistent today. It is improved today compared to yesterday. Interestingly he typically does not have this at night when he sleeping with his legs extended. Last night however he believes as he was on the recliner that he did have an episode once again. Satisfied with IV morphine intermittently in addition to other measures which have been addressed. Does not feel confident to be able to return home today at this time. Would prefer to have a home going regimen that he is tolerating an effective before he considers returning home. Exam Narrative: Exam Narrative: Appears comfortable when I examine him. Alert, oriented to self, place, time, situation. From the, articulate, cooperative. Mood and affect are congruent. Vision and hearing are grossly normal. Neck is supple. Upper extremity and lower extremity strength are preserved. Minimal increased atrophy left lower extremity compared to the right lower extremity. I am not able to induce or illicit the pain with palpation or touching of the left thigh even though he tells me exactly where the discomfort is when he does have it. Lungs clear to auscultation without wheezing, rhonchi, or rales. Heart tones with regular rhythm, normal S1-S2. Abdomen is obese with active bowel sounds, soft, nontender. Left hemiparesis, chronic. Const: Vital Signs, click to edit/add: Vital Signs - 24 hr 04/03/23 19:00 04/03/23 23:00 04/03/23 23:00 Temperature 97.3 F L 97.3 F L Pulse Rate [Right Brachial] 85 78 78 Respiratory Rate 18 18 Blood Pressure [Ri ght Arm] 130/84 120/71 Pulse Oximetry 97 97 Oxygen Delivery Me thod Room Air CPAP 04/03/23 23:00 04/04/23 03:00 04/04/23 07:00 Temperature 98.3 F Pulse Rate [Right Brachial] 84 79 Respiratory Rate 18 18 18 Blood Pressure [Ri ght Arm] 110/72 Pulse Oximetry 97 100 Oxygen Delivery Me thod Room Air CPAP 04/04/23 07:00 04/04/23 07:00 04/04/23 11:00 Temperature 99.3 F 99.3 F Pulse Rate [Right Brachial] 79 73 Respiratory Rate 18 18 20 Blood Pressure [Ri ght Arm] 121/78 112/70 Pulse Oximetry 97 97 94 Oxygen Delivery Me thod Room Air Room Air Room Air Documenting provider has reviewed patient's vital signs: yes
--- NOTE | 2023-04-04 15:16 | NUTR.NU ---
RD for nursing consult for skin risk. Pt with DM on insulin and multiple glycemic agents. Pt states weight is stable. Intake is 100% of meals. Pt has no GI complaints. Pt reports that he has a balanced diet, that his last A1c was 7.1 and he thinks he is doing very well. He reports that he will not count carbs but will try to keep balanced intake of protein, carbs. Pt intake not inadequate and no fooddd/knowledge deficit. Continue with current diet order,.
[2023-04-04] MEDS: POTASSIUM BICARB 25 MEQ EFFERVESCENT TAB PO ×2 (16:06→19:32)
--- NOTE | 2023-04-04 19:47 | PC.NURSE ---
Nursing Care Hours: [id number] Pt this shift alert and oriented. Anxious in Am d/t pain while transferring to [facility]. Could not get pain score to go below 5/10. Attempted scheduled and PRN medications, ice, heat, massage, and position with little and short term effectiveness. Ice and heat reportedly increased the pain to leg. Discussed a schedule for PRN medications for in between scheduled medications, while trying to avoid IV Morphine if possible with pt and spouse. Both verbalized understanding and agreement. No signs of swelling or redness to thigh area. Pedal pulses present bilat feet. Eating and drinking sufficiently. 2 person assist with standing to use urinal. BP continue to decrease throughout day, see VS. Hospitalist made aware.
[2023-04-04 20:00] VITALS: BP 97/64; PULSE 89; RESP 20; TEMP 36.6; O2SAT 96
[2023-04-04] MEDS: ENOXAPARIN 40 MG/0.4 ML INJ SUBCUT (21:06)
[2023-04-04] MEDS: carvediloL 25 MG TABLET 37.5 MG PO (21:08)
[2023-04-04] MEDS: GABAPENTIN 300 MG CAPSULE 900 MG PO (21:09)
[2023-04-04] MEDS: SENNOSIDES/DOCUSATE TABLET 2 TAB PO (21:09)
[2023-04-05] VITALS: BP 126/72; PULSE 82; RESP 14; TEMP 36.4; O2SAT 96
[2023-04-05] MEDS: MORPHINE 4 MG/ML INJ IVP (06:05)
[2023-04-05] MEDS: OMEPRAZOLE 20 MG CAPSULE DR PO (06:05)
[2023-04-05] MEDS: SODIUM CHLORIDE 0.9 % (FLUSH) 10 ML SYRINGE 5 ML IVF ×2 (06:07→08:10)
[2023-04-05 07:00] VITALS: BP 142/90; PULSE 72; RESP 20; TEMP 37.2; O2SAT 98
[2023-04-05 07:10] LABS: Lactate* 2.8 mmol/L (0.5-1.9)
[2023-04-05 07:14] LABS: Hematocrit 41.8 % (37.0-53.0); Hemoglobin* 14.3 gm/dL (13.5-17.5); Mean Corpuscular HGB Conc 34 gm/dL (32-36); Mean Corpuscular Hemoglobin 30 pg (26-34); Mean Corpuscular Volume 88 fL (80-100); Platelet Count* 297 K/uL (140-440); Red Blood Count 4.74 m/uL (4.30-5.90); White Blood Count* 10.68 K/uL (4.50-11.00)
[2023-04-05 07:17] LABS: Slide Review Reflex No
[2023-04-05 07:32] LABS: Albumin* 4.1 g/dL (3.3-5.0); Chloride* 100 mmol/L (96-114); Sodium* 138 mmol/L (135-149)
[2023-04-05 07:33] LABS: Potassium* 3.6 mmol/L (3.6-5.1)
[2023-04-05 07:34] LABS: Creatinine* 0.8 mg/dL (0.5-1.5); Est. Creatinine Clearance* 58.94; Estimated Glomerular Filt Rate 95 ml/min
[2023-04-05 07:35] LABS: Alanine Aminotransferase* 39 U/L (4-50); Alkaline Phosphatase* 41 U/L (40-150); Aspartate Amino Transferase* 33 U/L (12-35); Bilirubin Total* 1.2 mg/dL (0.1-1.5); Blood Urea Nitrogen* 30 mg/dL (7-30); Carbon Dioxide* 26 mmol/L (20-32); Glucose* 134 mg/dL (60-115); Total Protein* 7.1 g/dL (6.0-8.3)
[2023-04-05 07:36] LABS: Calcium* 8.5 mg/dL (8.4-10.6); Magnesium* 2.1 mg/dL (1.5-2.6); Phosphorus* 3.4 mg/dL (2.5-4.5)
[2023-04-05 07:38] LABS: C Reactive Protein* 0.5 mg/dL (0.5-1.0)
[2023-04-05] MEDS: KETOROLAC 15 MG/ML inj IVP (08:06)
[2023-04-05] MEDS: predniSONE 20 MG TABLET 40 MG PO (08:27)
[2023-04-05] MEDS: AMLODIPINE 10 MG TABLET 5 MG PO (08:28)
[2023-04-05] MEDS: GABAPENTIN 600 MG TABLET PO (08:29)
[2023-04-05] MEDS: ATORVASTATIN CALCIUM 40 MG TABLET PO (08:29)
[2023-04-05] MEDS: BACLOFEN 10 MG TABLET PO (08:29)
[2023-04-05] MEDS: carvediloL 25 MG TABLET 37.5 MG PO (08:29)
[2023-04-05] MEDS: glipiZIDE XL 5 MG TAB 20 MG PO (08:29)
[2023-04-05] MEDS: METFORMIN 1,000 MG TABLET 1000 MG PO (08:30)
[2023-04-05] MEDS: lisinopriL 20 MG TABLET PO (08:30)
[2023-04-05] MEDS: hydroCHLOROthiazide 25 MG TABLET 12.5 MG PO (08:30)
[2023-04-05] MEDS: oxyBUTYnin chloride 5 MG TABLET PO (08:31)
[2023-04-05] MEDS: NYSTATIN POWDER 1 APPLIC TOPICAL (08:31)
[2023-04-05] MEDS: SENNOSIDES/DOCUSATE TABLET 2 TAB PO (08:31)
[2023-04-05] MEDS: polyethylene glycoL 3350 17 GM PACK PO (08:31)
[2023-04-05] MEDS: ACETAMINOPHEN 650 MG TABLET ER 1300 MG PO (10:25)
[2023-04-05 11:00] VITALS: BP 126/74; PULSE 77; RESP 16; TEMP 37.6; O2SAT 98
[2023-04-05] MEDS: 0.9 % SODIUM CHLORIDE 500 ML 500 ML IV (11:19)
--- NOTE | 2023-04-05 13:13 | PC.NURSE ---
Nursing Care Hours: [id number] Pt this shift calm and cooperative with cares. Alert and oriented. Pain decreased from yesterday, rating 4-5/10 while at rest in morning and afternoon 3/10. Able to take 4 steps from recliner to BSC. PT placed pts AFO on L foot with shoes and was able to walk from recliner to bathroom and pain remained low. Lactate was elevated so 500ml bolus given through IV per orders. No insulin needed per sliding scale. Discharge instructions provided. Went over use of scheduled pain medications and PRN mediations. Rig Manager and pt with spouse came up with a schedule for PRN Tylenol and at home ibuprofen. Discussed scheduling the PRN pain meds but assessing wether it is needed or not before taking it at that time. Pt and spouse show understatement and are grateful for the help they have received. IV removed for discharge, wheeled out to vehicle in stable condition.
--- NOTE | 2023-04-05 15:13 | PM.DS1 ---
DS: Providers Provider Time Seen by Provider: 11:30 Date Seen: 04/05/23 Date of admission: 04/03/23 10:37 Primary care physician: Hill Castelan MD Admitting Clinician: Rosanna Lara MD Consults: 04/03/23 11:17 Consult to Physical Therapy [CONS] Routine Comment: Reason(s) for PT Consult:: Evaluate and Treat Any Restrictions?:: No Restrictions Consult to [employer] Supervisor [CONS] Routine Comment: Reason for Consult:: Discharge Planning Needs 04/03/23 11:18 Consult to Occupational Therapy [CONS] Routine Comment: Reason(s) for OT Consult:: Evaluate and Treat Any Restrictions?:: No Restrictions 04/03/23 12:56 Consult to Occupational Therapy [CONS] Routine Comment: Reason(s) for OT Consult:: ADLs Prior to Discharge Any Restrictions?:: No Restrictions Comment: lt hand weakness due to CVA in 2014 Consult to Physical Therapy [CONS] Routine Comment: Reason(s) for PT Consult:: Evaluate and Treat Any Restrictions?:: No Restrictions Attending Physician on discharge: Faustino Pool MD Date of Discharge: 04/05/23 DS: Diagnosis Discharge Diagnosis (1) Left thigh pain: Status: Acute Problem details: - History consistent with meralgia paresthetica, 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 (3) Left hemiparesis: Status: Acute Problem details: Status post hemorrhagic cerebrovascular accident in 2004 (4) Hemorrhagic cerebrovascular accident (CVA): Status: Acute Problem details: - 2005, L sided deficits (5) CAD (coronary artery disease): Status: Acute Problem details: - [place] 2000 with placement of RCA stent (6) Essential hypertension: Status: Acute (7) Insulin dependent diabetes mellitus: Status: Acute Problem details: - last A1C 7.1 (09/2022) - continue home medications, SSI - anticipate elevated BGs while on steroids (8) BARRY on CPAP: Status: Acute DS: Summary Hospital Course Hospital Course: 73-year-old man in his usual state of health until about 3 days prior to presentation to the hospital when he had sudden onset of left lateral thigh pain similar to what he has had in the past starting in 2013 and subsequently. 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 Subsequently when he had a recurrence of his condition he was thought to possibly have meralgia paresthetica. This condition suddenly recurred yesterday. No recent trauma or injury or travel. Initially placed on IV ketorolac, intermittent IV morphine with modicum of pain relief. Subsequently started on MS Contin and as needed oxycodone for breakthrough pain, with much improved pain control. Interestingly he typically does not have this at night when he sleeping with his legs extended. Last night however he believes as he was on the recliner that he did have an episode once again. Status at Discharge Functional status at discharge: uses cane/walker Overall status at discharge: patient is progressing back to baseline Time Spent with Patient Time attestation: Total time spent providing and/or coordinating discharge services: Time spent: Greater than 30 minutes Exam Narrative: Exam Narrative: Appears comfortable when I examine him. Alert, oriented to self, place, time, situation. From the, articulate, cooperative. Mood and affect are congruent. Vision and hearing are grossly normal. Neck is supple. Upper extremity and lower extremity strength are preserved. Minimal increased atrophy left lower extremity compared to the right lower extremity. I am not able to induce or illicit the pain with palpation or touching of the left thigh even though he tells me exactly where the discomfort is when he does have it. Lungs clear to auscultation without wheezing, rhonchi, or rales. Heart tones with regular rhythm, normal S1-S2. Abdomen is obese with active bowel sounds, soft, nontender. Left hemiparesis, chronic. Able to ambulate on date of discharge with minimal discomfort. Const: Vital Signs, click to edit/add: Vital Signs - 24 hr 04/04/23 20:00 04/04/23 20:00 04/04/23 20:00 Temperature 97.9 F Pulse Rate [Right Pulse Oximeter] 89 89 Respiratory Rate 20 20 20 Blood Pressure [Ri ght Arm] 97/64 Pulse Oximetry 96 96 Oxygen Delivery Me thod Room Air Room Air 04/05/23 00:00 04/05/23 07:00 04/05/23 07:00 Temperature 97.6 F Pulse Rate [Right Pulse Oximeter] 82 72 Respiratory Rate 14 20 20 Blood Pressure [Ri ght Arm] 126/72 Pulse Oximetry 96 98 Oxygen Delivery Me thod Room Air Room Air 04/05/23 07:00 04/05/23 11:00 Temperature 99 F 99.6 F Pulse Rate [Right Pulse Oximeter] 72 77 Respiratory Rate 20 16 Blood Pressure [Ri ght Arm] 142/90 H 126/74 Pulse Oximetry 98 98 Oxygen Delivery Me thod Room Air Room Air Documenting provider has reviewed patient's vital signs: yes DS: Data Data Completed and Pending Labs on day of discharge: Labs from last 24 hours 04/05/23 06:24 WBC 10.68 RBC 4.74 Hgb 14.3 Hct 41.8 MCV 88 MCH 30 MCHC 34 Plt Count 297 Sodium 138 Potassium 3.6 Chloride 100 Carbon Dioxide 26 BUN 30 Creatinine 0.8 Estimated Creat Clear 58.94 Estimated GFR 95 Glucose 134 H Lactate 2.8 H Calcium 8.5 Phosphorus 3.4 Magnesium 2.1 Total Bilirubin 1.2 AST 33 ALT 39 Alkaline Phosphatase 41 C-Reactive Protein 0.5 Total Protein 7.1 Albumin 4.1 TSH 1.230 Imaging Left femur x-ray: Attestation: I have reviewed the pertinent imaging results. Radiologist's impression: Impression: Demonstration of prior proximal femur fracture status post intertrochanteric fixation without evidence of hardware failure or new acute osseous abnormality. MR lumbosacral spine: Attestation: I have reviewed the pertinent imaging results. Radiologist's impression: IMPRESSION: 1. Stable degenerative grade 1 anterolisthesis of L4 on L5. Otherwise normal alignment. No fractures 2. Congenital pedicles 3. Interval progression of lumbar spondylosis. 4. At L1-2, mild narrowing of the right neural foramina 5. At L3-4, mild narrowing of spinal canal. Left extraforaminal disc protrusion contributes to moderate narrowing of the left neural foramen and may impinge upon the exiting left L3 nerve root. Mild narrowing of the right neuroforamen. 6. At L4-5, moderate right and mild left neural foraminal narrowing. 7. At L5-S1, mild narrowing of the bilateral foramina Discharge Plan Discharge Disposition: Home, Self-Care Date of Admission: 04/03/23 10:37 Attending Provider on Discharge: Faustino Pool Primary Care Provider: Hill Castelan Condition: Stable Anticipated Discharge Date/Time: 04/05/23 12:30 Discharge Medications: New potassium chloride 10 mEq capsule, extended release 10 meq PO DAILY Qty: 7 2RF morphine 15 mg Tablet Extended Release 15 mg PO BID 15 Days Qty: 30 0RF oxycodone 5 mg Tablet 2.5 - 5 mg PO Q4H PRN15 Days Qty: 20 0RF carvedilol 25 mg Tablet 37.5 mg PO BID 30 Days Qty: 90 0RF sennosides-docusate sodium [Stool Softener-Laxative] 8.6-50 mg Tablet 2 tab PO BID 30 Days Qty: 120 0RF acetaminophen 650 mg Tablet Extended Release 1,300 mg PO Q8H PRN30 Days Qty: 120 0RF amlodipine 10 mg Tablet 5 mg PO DAILY 30 Days Qty: 15 0RF hydrochlorothiazide 25 mg Tablet 12.5 mg PO DAILY 30 Days Qty: 15 0RF nystatin 100,000 unit/gram Powder 1 applic topical BID 15 Days Qty: 30 0RF Continued atorvastatin 40 mg tablet 40 mg PO DAILY lisinopril 20 mg tablet 20 mg PO DAILY (DME) Accu-Chek Flaquita Plus test strp Strip MISCELLANEOUS BID baclofen 10 mg tablet 10 mg PO TID metformin 1,000 mg tablet 1,000 mg PO BID gabapentin 300 mg capsule 600 - 900 mg PO TID Rx Instructions: TAKE 2 CAPSULES (600MG) EVERY MORNING AND MIDDAY, AND 3 CAPSULES (900MG) EVERY EVENING orally; oxybutynin chloride 5 mg tablet 5 mg PO BID insulin glargine [Lantus Solostar U-100 Insulin] 100 unit/mL (3 mL) insulin pen 65 - 80 unit subcut QPM Jardiance 10 mg tablet 10 mg PO DAILY alendronate 70 mg tablet 70 mg PO Q7D epinephrine 0.3 mg/0.3 mL auto-injector 0.3 mg IM .ud Patient Comments: for allergic reaction glipizide 10 mg tablet extended release 24hr 20 mg PO DAILY insulin lispro [Humalog KwikPen Insulin] 100 unit/mL insulin pen 10 - 20 unit subcut .every evening as dir nitroglycerin 0.4 mg tablet, sublingual 0.4 mg sublingual Q5M Discontinued carvedilol 25 mg tablet 50 mg PO BID amlodipine 10 mg tablet 10 mg PO DAILY oxycodone 5 mg tablet 5 mg PO Q8H PRN (Reason: pain) hydrochlorothiazide 25 mg tablet 25 mg PO DAILY Discharge Orders: Discharge Order (Routine); Ordered 04/05/23 Ordered By: Faustino Pool Patient Education: Hydrochlorothiazide (By mouth), Acetaminophen (By mouth), Potassium Chloride (By mouth), Nystatin (On the skin), Morphine, Rapid Release (By mouth), Oxycodone, Rapid Release (By mouth), Amlodipine (By mouth), Carvedilol (By mouth), Senna (By mouth), Meralgia Paresthetica (ED) Additional Instructions: MS Contin 15 mg b.i.d.. Oxycodone 2.5-5 mg q.4 hours as needed. Primary care follow-up in the next 3-7 days. Potassium was slightly low here, I have sent a prescription for potassium replacement for the next week, this should be rechecked next week with primary care. Activity Level: Activity as Tolerated Discharge Diet: Diabetic Follow Up Appointments: Hill Castelan MD [Primary Care Provider] - (Keep Friday appointments as schedule.) Forms: @Pay Info Instructions
== END 2023-04-05 12:45 | disposition home or self-care (01) ==
LOC: ED 10:23 → MEDSURG 10:38
PROVIDERS: Emergency Medicine; Internal Medicine; Admitting Provider Family Medicine; Emergency Provider Family Medicine; PCP Family Medicine; Visit Provider Family Medicine
DX: G81.94 Hemiplegia, unspecified affecting left nondominant side (principal); I25.10 Atherosclerotic heart disease of native coronary artery without angina pectoris; G57.12 Meralgia paresthetica, left lower limb; I69.398 Other sequelae of cerebral infarction; L98.499 Non-pressure chronic ulcer of skin of other sites with unspecified severity; E87.6 Hypokalemia; I10 Essential (primary) hypertension; E78.5 Hyperlipidemia, unspecified; E11.40 Type 2 diabetes mellitus with diabetic neuropathy, unspecified; Z79.4 Long term (current) use of insulin; Z79.84 Long term (current) use of oral hypoglycemic drugs; G47.33 Obstructive sleep apnea (adult) (pediatric); Z99.89 Dependence on other enabling machines and devices; M81.0 Age-related osteoporosis without current pathological fracture; R53.1 Weakness; M79.652 Pain in left thigh; Z87.81 Personal history of (healed) traumatic fracture; Z87.891 Personal history of nicotine dependence; Z86.79 Personal history of other diseases of the circulatory system; Z87.310 Personal history of (healed) osteoporosis fracture; Z98.890 Other specified postprocedural states
CPT/HCPCS: 36415; 72148; 73552; 80048; 80053; 82962; 83605; 83735; 84100; 84443; 85025; 85027; 85651; 86140; 96361; 96372; 96374; 96375; 96376; 97110; 97116; 97162; 97165; 97530; 97535; 99284; A9270; G0378; J1650; J1885; J2270; J7120; J7512

== ENCOUNTER 2023-04-21 08:01 | Outpatient (CLI) | payer MEDICARE, SELFPAY | END 2023-04-21 08:02 | disposition home or self-care (01) | LOC: WOUND 08:01 | PROVIDERS: PCP Family Medicine; Visit Provider Nurse Practitioner Family | DX: E11.622 Type 2 diabetes mellitus with other skin ulcer (principal); I87.2 Venous insufficiency (chronic) (peripheral); L97.512 Non-pressure chronic ulcer of other part of right foot with fat layer exposed; L97.222 Non-pressure chronic ulcer of left calf with fat layer exposed; L97.812 Non-pressure chronic ulcer of other part of right lower leg with fat layer exposed; Z79.84 Long term (current) use of oral hypoglycemic drugs; Z79.4 Long term (current) use of insulin | CPT/HCPCS: 11042; 97597; 99213 ==

== ENCOUNTER 2023-04-29 15:28 | Outpatient (CLI) | payer MEDICARE, SELFPAY | END 2023-04-29 15:29 | disposition home or self-care (01) | LOC: WOUND 15:28 | PROVIDERS: PCP Family Medicine; Visit Provider Nurse Practitioner Family | DX: E11.622 Type 2 diabetes mellitus with other skin ulcer (principal); L97.812 Non-pressure chronic ulcer of other part of right lower leg with fat layer exposed; L97.222 Non-pressure chronic ulcer of left calf with fat layer exposed; Z79.4 Long term (current) use of insulin; Z79.84 Long term (current) use of oral hypoglycemic drugs | CPT/HCPCS: 11042; 97597 ==

== ENCOUNTER 2023-05-06 14:54 | Outpatient (CLI) | payer MEDICARE, SELFPAY | END 2023-05-06 14:55 | disposition home or self-care (01) | LOC: WOUND 14:54 | PROVIDERS: PCP Family Medicine; Visit Provider Nurse Practitioner Family | DX: I87.2 Venous insufficiency (chronic) (peripheral) (principal); E11.622 Type 2 diabetes mellitus with other skin ulcer; L97.222 Non-pressure chronic ulcer of left calf with fat layer exposed; L97.812 Non-pressure chronic ulcer of other part of right lower leg with fat layer exposed; Z79.4 Long term (current) use of insulin; Z79.84 Long term (current) use of oral hypoglycemic drugs | CPT/HCPCS: 11042 ==

== ENCOUNTER 2023-05-13 13:29 | Outpatient (CLI) | payer MEDICARE, SELFPAY | END 2023-05-13 13:30 | disposition home or self-care (01) | LOC: WOUND 13:30 | PROVIDERS: PCP Family Medicine; Visit Provider Nurse Practitioner Family | DX: I87.2 Venous insufficiency (chronic) (peripheral) (principal); E11.622 Type 2 diabetes mellitus with other skin ulcer; L97.222 Non-pressure chronic ulcer of left calf with fat layer exposed; L97.812 Non-pressure chronic ulcer of other part of right lower leg with fat layer exposed; Z79.4 Long term (current) use of insulin; Z79.84 Long term (current) use of oral hypoglycemic drugs | CPT/HCPCS: 11042; 11045; 87070; 87186; 97602; 99212 ==

== ENCOUNTER 2023-05-20 14:54 | Outpatient (CLI) | payer MEDICARE, SELFPAY | END 2023-05-20 14:55 | disposition home or self-care (01) | LOC: WOUND 05-27 11:55 | PROVIDERS: PCP Family Medicine; Visit Provider Nurse Practitioner Family | DX: E11.622 Type 2 diabetes mellitus with other skin ulcer (principal); I87.2 Venous insufficiency (chronic) (peripheral); L97.222 Non-pressure chronic ulcer of left calf with fat layer exposed; L97.812 Non-pressure chronic ulcer of other part of right lower leg with fat layer exposed; Z79.4 Long term (current) use of insulin; Z79.84 Long term (current) use of oral hypoglycemic drugs | CPT/HCPCS: 97597; 97602 ==

== ENCOUNTER 2023-05-27 13:31 | Outpatient (CLI) | payer MEDICARE, SELFPAY | END 2023-05-27 13:32 | disposition home or self-care (01) | LOC: WOUND 13:31 | PROVIDERS: PCP Family Medicine; Visit Provider Nurse Practitioner Family | DX: I87.2 Venous insufficiency (chronic) (peripheral) (principal); E11.622 Type 2 diabetes mellitus with other skin ulcer; L97.222 Non-pressure chronic ulcer of left calf with fat layer exposed; L97.812 Non-pressure chronic ulcer of other part of right lower leg with fat layer exposed; Z79.4 Long term (current) use of insulin; Z79.84 Long term (current) use of oral hypoglycemic drugs | CPT/HCPCS: 11042; 97597 ==

== ENCOUNTER 2023-06-03 13:04 | Outpatient (CLI) | payer MEDICARE, SELFPAY | END 2023-06-03 13:05 | disposition home or self-care (01) | LOC: WOUND 13:04 | PROVIDERS: PCP Family Medicine; Visit Provider Nurse Practitioner Family | DX: I87.2 Venous insufficiency (chronic) (peripheral) (principal); E11.622 Type 2 diabetes mellitus with other skin ulcer; L97.222 Non-pressure chronic ulcer of left calf with fat layer exposed; L97.812 Non-pressure chronic ulcer of other part of right lower leg with fat layer exposed; Z79.4 Long term (current) use of insulin; Z79.84 Long term (current) use of oral hypoglycemic drugs | CPT/HCPCS: 11042; 97597 ==

== ENCOUNTER 2023-06-10 13:23 | Outpatient (CLI) | payer MEDICARE, SELFPAY | END 2023-06-10 13:24 | disposition home or self-care (01) | LOC: WOUND 13:23 | PROVIDERS: PCP Family Medicine; Visit Provider Nurse Practitioner Family | DX: I87.2 Venous insufficiency (chronic) (peripheral) (principal); E11.622 Type 2 diabetes mellitus with other skin ulcer; L97.222 Non-pressure chronic ulcer of left calf with fat layer exposed; L97.812 Non-pressure chronic ulcer of other part of right lower leg with fat layer exposed; Z79.4 Long term (current) use of insulin; Z79.84 Long term (current) use of oral hypoglycemic drugs | CPT/HCPCS: 11042; 97597 ==

== ENCOUNTER 2023-06-19 13:31 | Outpatient (CLI) | payer MEDICARE, SELFPAY | END 2023-06-19 13:32 | disposition home or self-care (01) | LOC: WOUND 13:31 | PROVIDERS: PCP Family Medicine; Visit Provider Nurse Practitioner Family | DX: I87.2 Venous insufficiency (chronic) (peripheral) (principal); E11.622 Type 2 diabetes mellitus with other skin ulcer; L97.812 Non-pressure chronic ulcer of other part of right lower leg with fat layer exposed; Z79.4 Long term (current) use of insulin; Z79.84 Long term (current) use of oral hypoglycemic drugs | CPT/HCPCS: 11042 ==

== ENCOUNTER 2023-06-24 13:35 | Outpatient (CLI) | payer MEDICARE, SELFPAY | END 2023-06-24 13:36 | disposition home or self-care (01) | LOC: WOUND 13:35 | PROVIDERS: PCP Family Medicine; Visit Provider Nurse Practitioner Family | DX: I87.2 Venous insufficiency (chronic) (peripheral) (principal); E11.622 Type 2 diabetes mellitus with other skin ulcer; L97.812 Non-pressure chronic ulcer of other part of right lower leg with fat layer exposed; Z79.4 Long term (current) use of insulin; Z79.84 Long term (current) use of oral hypoglycemic drugs | CPT/HCPCS: 11042 ==

== ENCOUNTER 2023-07-01 13:28 | Outpatient (CLI) | payer MEDICARE, SELFPAY | END 2023-07-01 13:29 | disposition home or self-care (01) | LOC: WOUND 13:29 | PROVIDERS: PCP Family Medicine; Visit Provider Nurse Practitioner Family | DX: I87.2 Venous insufficiency (chronic) (peripheral) (principal); E11.622 Type 2 diabetes mellitus with other skin ulcer; L97.812 Non-pressure chronic ulcer of other part of right lower leg with fat layer exposed; Z79.4 Long term (current) use of insulin; Z79.84 Long term (current) use of oral hypoglycemic drugs | CPT/HCPCS: 11042 ==

== ENCOUNTER 2023-07-15 15:40 | Outpatient (CLI) | payer MEDICARE, SELFPAY | END 2023-07-15 15:41 | disposition home or self-care (01) | LOC: WOUND 15:40 | PROVIDERS: PCP Family Medicine; Visit Provider Nurse Practitioner Family | DX: E11.622 Type 2 diabetes mellitus with other skin ulcer (principal); I87.2 Venous insufficiency (chronic) (peripheral); L97.812 Non-pressure chronic ulcer of other part of right lower leg with fat layer exposed; Z79.4 Long term (current) use of insulin; Z79.84 Long term (current) use of oral hypoglycemic drugs | CPT/HCPCS: 11042 ==

== ENCOUNTER 2023-07-29 12:45 | Outpatient (CLI) | payer MEDICARE, SELFPAY | END 2023-07-29 12:46 | disposition home or self-care (01) | LOC: WOUND 12:45 | PROVIDERS: PCP Family Medicine; Visit Provider Nurse Practitioner Family | DX: E11.622 Type 2 diabetes mellitus with other skin ulcer (principal); L97.812 Non-pressure chronic ulcer of other part of right lower leg with fat layer exposed; I87.2 Venous insufficiency (chronic) (peripheral); Z79.4 Long term (current) use of insulin; Z79.84 Long term (current) use of oral hypoglycemic drugs | CPT/HCPCS: 99212 ==

== ENCOUNTER 2023-08-12 12:44 | Outpatient (CLI) | payer MEDICARE, SELFPAY | END 2023-08-12 12:45 | disposition home or self-care (01) | LOC: WOUND 12:44 | PROVIDERS: PCP Family Medicine; Visit Provider Nurse Practitioner Family | DX: E11.622 Type 2 diabetes mellitus with other skin ulcer (principal); L97.812 Non-pressure chronic ulcer of other part of right lower leg with fat layer exposed; Z79.4 Long term (current) use of insulin; Z79.84 Long term (current) use of oral hypoglycemic drugs | CPT/HCPCS: 97602; 99212 ==

== ENCOUNTER 2023-09-02 12:48 | Outpatient (CLI) | payer MEDICARE, SELFPAY | END 2023-09-02 12:49 | disposition home or self-care (01) | LOC: WOUND 12:48 | PROVIDERS: PCP Family Medicine; Visit Provider Nurse Practitioner Family | DX: E11.622 Type 2 diabetes mellitus with other skin ulcer (principal); L97.818 Non-pressure chronic ulcer of other part of right lower leg with other specified severity; Z79.4 Long term (current) use of insulin; Z79.84 Long term (current) use of oral hypoglycemic drugs | CPT/HCPCS: G0463 ==

== ENCOUNTER 2025-07-23 06:50 | Outpatient (CLI) | payer MEDICARE, SELFPAY | END 2025-07-23 06:51 | disposition home or self-care (01) | LOC: AMB 07-25 19:30 | PROVIDERS: PCP Family Medicine; Visit Provider Emergency Medicine | DX: R53.1 Weakness (principal) | CPT/HCPCS: A0998 ==